=== PATIENT | male | born 1955 | race Caucasian/White ===

== ENCOUNTER → 2022-08-12 | Outpatient (CLI) | payer SELFPAY ==
--- NOTE | 2022-08-12 06:15 | ECHOD_ITS ---
Reason For Study: CARDIOMYOPATHY Procedure This was a 2D Doppler, Color Flow transthoracic echocardiogram. Exam performed in department. Left Ventricle Normal LV size. Severe eccentric left ventricular hypertrophy. Left ventricular systolic function is normal. The estimated ejection fraction is 60 %. Stage 3 diastolic dysfunction. No regional wall motion abnormalities noted. Right Ventricle Normal RV size. Normal systolic function. Atria The left atrium is moderately enlarged. The right atrium is mildly enlarged. Mitral Valve There is mild mitral annular calcification. Bileaflet diffuse mitral valve thickening. Mild (1+) eccentric mitral valve insufficiency. Tricuspid Valve Normal tricuspid valve. Mild (1+) tricuspid valve insufficiency. Pulmonary artery systolic pressure is 36 mmHg. Aortic Valve Trisinus/trileaflet aortic valve. Pulmonic Valve Normal pulmonic valve. Mild (1+) pulmonic valve insufficiency. Great Vessels Normal aortic root. The pulmonary artery is normal size. Normal inferior vena cava. Pericardium/Pleural No pericardial effusion. Medication Performed a rapid injection of agitated mix of 9 cc saline and 1cc air to assess for atrial septal defect. MMode/2D Measurements & Calculations LVIDd: 3.9 cm IVSd: 1.4 cm Ao root diam: 2.7 cm LVIDs: 2.1 cm LVPWd: 1.2 cm RVDd: 4.1 cm FS: 45.7 % LAV(MOD-bp): 102.4 ml LVAd ap4: 24.0 cm2 SV(MOD-sp4): 39.3 ml LAV(MOD-bp) Indexed: 56.8 ml/m2 LVLd ap4: 7.3 cm LAV(MOD-sp2): 97.8 ml EDV(MOD-sp4): 63.7 ml LAV(MOD-sp4): 100.8 ml EDV(sp4-el): 66.5 ml LVAs ap4: 12.4 cm2 LVLs ap4: 6.0 cm ESV(MOD-sp4): 24.5 ml ESV(sp4-el): 21.7 ml EF(MOD-sp4): 61.6 % EF(sp4-el): 67.3 % SV(sp4-el): 44.8 ml LA A4 area: 29.1 cm2 LA dimension(2D): 4.6 cm RA A4 area: 20.5 cm2 Time Measurements MV dec time: 0.21 sec Doppler Measurements & Calculations MV E max mendel: 83.3 cm/sec Lat Peak E' Mendel: 6.6 cm/sec Med Peak E' Mendel: 5.7 cm/sec MV A max mendel: 40.6 cm/sec E/E' lat: 12.7 E/E' med: 14.5 MV E/A: 2.1 Ao V2 max: 177.2 cm/sec LV V1 max: 162.6 cm/sec PA V2 max: 98.7 cm/sec Ao max P.6 mmHg LV V1 max P.6 mmHg TR max mendel: 286.3 cm/sec TR max P.8 mmHg ECHO/Echo Complete Interpretation Summary Normal LV size. Left ventricular systolic function is normal. Severe eccentric left ventricular hypertrophy. The estimated ejection fraction is 60 %. Stage 3 diastolic dysfunction. The left atrium is moderately enlarged. Pulmonary artery systolic pressure is 36 mmHg. Ordering Physician: Shiv La Referring Physician: KHOA WEEKS Performed By: Deepa Guthrie RDCS
--- NOTE | 2022-08-12 13:07 | STRESSREP ---
Stress Test Report Pharmacologic mild cardial perfusion stress test. 67-year-old man with a history of shortness of breath. Stress protocol: Resting EKG demonstrates sinus bradycardia with a rate of 56 bpm T wave inversions noted in lead I to aVL V4 V5 V6. 0.4 mg of regadenoson was infused per usual protocol followed by rapid intravenous saline flush injection continuous EKG monitoring was performed. The maximum heart rate attained was 77 bpm which was 49% of max impacted heart rate the maximum workload was 1 metabolic equivalent. At rest there were no ST or T wave changes noted to suggest abnormal flow reserve. The peak blood pressure was 118/70 mmHg. Myocardial perfusion protocol. 11.8 mCi of technetium 99m sestamibi was injected at rest. 0.4 mg of regadenoson was infused per usual protocol. At peak infusion 33.3 mCi of technetium 99m sestamibi was injected stress images were obtained stress and rest images were reconstructed in comparing the short axis vertical long and horizontal long axis. Gated images were also obtained. Perfusion SPECT analysis: Review of the stress images demonstrate normal uptake of tracer noted in all areas of the myocardium. The resting images similar demonstrate normal uptake of tracer noted in all areas of the myocardium. No areas of reversibility are noted suggest ischemia no previous infarct is noted. Gated SPECT analysis: The gated ejection fraction is 44%. Conclusion: Normal pharmacologic myocardial perfusion stress test with no evidence of ischemia. Mild reduction in left ventricular function
== END | disposition home or self-care (01) ==
LOC: CVS 06:19
PROVIDERS: PCP Family Medicine; Referring Provider Internal Medicine Cardiovascular Disease; Visit Provider Internal Medicine Cardiovascular Disease
DX: I42.9 Cardiomyopathy, unspecified (principal); R06.02 Shortness of breath
CPT/HCPCS: 78452; 93017; 93306; A9500; A4216; J2785

== ENCOUNTER 2023-08-17 08:36 | Day surgery (SDC) | payer MEDICARE, OTHER, SELFPAY ==
[2023-08-17] VITALS (7 sets, daily range): BP systolic 91–105; BP diastolic 60–68; PULSE 57–69; RESP 16–18; TEMP 36.1–36.6; O2SAT 94–98; BMI 26.6
[2023-08-17] MEDS: Lactated Ringers 1,000 ML 15 ML IV (09:22)
[2023-08-17] MEDS: Cefazolin 2 GM in 0.9% Normal Saline (100mL Bag) 100 ML IV (10:47)
[2023-08-17] MEDS: Epinephrine (1 mg/ml) 1 MG/ML VIAL (11:16)
[2023-08-17] MEDS: Bupivacaine 0.25% 30 ML Vial (13:39)
[2023-08-17] MEDS: Ketorolac 15 MG/ML Vial IM (15:39)
--- NOTE | 2023-08-17 15:57 | DCINST_ITS ---
Discharge Instructions Follow Up Care Test Results: Test results from this visit will be discussed in further detail at your follow- up appointment, if applicable. Discharge Plan Admission Primary Reason for Your Visit: Right shoulder rotator cuff repair Attending Provider: Juan M Wells Primary Care Provider: Jac Mcqueen Instructions Additional Instructions / Restrictions: See preprinted instructions from your surgeons office. Discharge Orders/Prescriptions Prescriptions: New oxycodone 5 mg tablet 10 mg PO Q6H PRN (Reason: pain) 7 Days Qty: 42 0RF ondansetron 4 mg tablet,disintegrating 4 mg PO Q8H PRN (Reason: nausea and vomiting) 4 Days Qty: 12 0RF Continued red yeast rice 600 mg capsule 600 mg PO DAILY Rx Instructions: give with meal/snack calcium carbonate [Calcium 600] 600 mg calcium (1,500 mg) tablet 600 mg PO DAILY atorvastatin 40 mg tablet 40 mg PO QHS metoprolol succinate 50 mg tablet extended release 24 hr 50 mg PO QHS aspirin 81 mg tablet,delayed release (DR/EC) 81 mg PO DAILY Referrals / Follow Up: Jac Mcqueen DO [Primary Care Provider] - Disposition Disposition (needs filled in before D/C Order can be placed): Home, Self Care
--- NOTE | 2023-08-17 15:57 | OP.PCM_ITS ---
Report of Operation Date of Procedure: 08/17/23 Description of Surgical Findings:: Preoperative diagnosis: 1. Right shoulder acute massive rotator cuff tear 2. Right shoulder subacromial impingement syndrome 3. SLAP tear right shoulder with biceps tendinitis 4. 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 Right shoulder acute massive rotator cuff tear 2. Right shoulder subacromial impingement syndrome 3. SLAP tear right shoulder with biceps tendinitis 4. 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 Diagnostic and operative right shoulder arthroscopy with rotator cuff repair 2. Right shoulder subacromial decompression 3. Right shoulder arthroscopic labral debridement, capsular debridement, subacromial bursectomy 4. Right shoulder mini open long head biceps tenodesis Primary Surgeon: Juan M Wells DO [employer] Supervisor: Portia Chandra PA-C Anesthesia: General endotracheal Anesthesiologist: Cam Cummins MD Complications: None apparent Specimen: None Estimated blood loss: 10 cc IV fluids: 1500 cc crystalloid Urine output: None Packing/drains: None Implants: Arthrex 4.75 mm swivel lock anchor x4, Arthrex fiber tack RC all suture anchors x3, Arthrex biceps button x1 Intraoperative findings: Type II SLAP tear, massive rotator cuff tear with tearing of the subscapularis, supraspinatus and infraspinatus, downsloping subacromial spur, AC joint osteoarthrosis Preoperative indications: This is a 68-year-old male seen in the outpatient setting with right shoulder pain and weakness with pseudoparalysis following a fall from a ladder approximately 6 weeks ago. MRI was obtained and demonstrated massive acute rotator cuff tear. Labral tearing, subacromial impingement, AC joint arthrosis was noted as well. I recommended surgical intervention in the form of right shoulder diagnostic and operative arthroscopy with rotator cuff repair, biceps tenodesis, distal clavicle excision and subacromial decompression. I reviewed the risks, benefits, alternatives the procedure with the patient. Risks included but were not limited to bleeding, infection, loss of life or limb, incomplete repair, irreparable rotator cuff tear, nonhealing tendon, persistent pain, persistent weakness, stiffness, need for prolonged immobilization, prolonged therapy, DVT or PE, risk of anesthesia, neurovascular injury, need for additional surgery. Patient expressed understanding these risks and wished to proceed with surgery. Description of procedure: Patient was identified in the preoperative holding area by name, medical record number, and date of . Informed consent was confirmed with the patient. The operative extremity was marked with a surgical marker. All questions were answered to the patient's satisfaction. An interscalene block was administered by anesthesia staff prior to the pr ocedure. At time of his procedure, patient was was brought to the operative suite and positioned supine on a standard operating table. General anesthesia was induced and endotracheal tube placed. Patient was then positioned in the lateral decubitus position with all bony prominences well-padded and an axillary roll was placed. He was held in position with a beanbag. We spun the bed approximat jasiel 20 degrees. We then prepped and draped the operative upper extremity in a normal, sterile orthopedic fashion. We performed a timeout with all parties in attendance in agreement with the side, site, and operation be performed. No concerns were voiced and we elected to proceed. 2 g Ancef was administered prior to the incision by anesthesia staff. Operative upper extremity was placed in traction utilizing a traction sleeve. 15 pounds was applied to the right upper extremity throughout the majority of the case. I first outlined the bony landmarks of the shoulder. I established a standard posterior portal with an 11 blade scalpel. Blunt tipped trocar in cannula was inserted into the glenohumeral joint. The joint was insufflated with normal saline solution with epinephrine in the first 2 bags. Trocar was removed and diagnostic arthroscopy was commenced. I established a standard interval portal anteriorly with localization via spinal needle. Skin was sharply incised with 11 blade scalpel. Diagnostic arthroscopy revealed an unstable biceps anchor consistent with type II SLAP tear, minimal chondromalacia on the humeral head. Massive rotator cuff tear was noted. There was retraction of the the supraspinatus, subscapularis, and infraspinatus. I proceeded with biceps tenotomy with a radiofrequency ablation device. Tenotomy was performed at the tendon labral junction and the tendon was allowed to retract into the bicipital groove. I then turned my attention to the subscapularis. An anterior superior lateral portal was then established for suture management. A rigid cannula was placed. I debrided the lesser tuberosity footprint. A 3 sided release was performed of the subscapularis. An inverted mattress suture was placed in the subscapularis with a fiber tape suture via an antegrade suture passer. Sutures were passed through the eyelet of a bio composite swivel lock anchor. Burrer Machine hole was then placed in the lesser tuberosity at the footprint of the s ubscapularis. Sutures were tensioned and swivel lock anchor was placed with excellent cortical purchase and excellent reapproximation of the subscapularis tendon. Comma tissue was identified and left intact. I then withdrew the arthroscope. Utilizing the blunt tipped trocar, I reentered the shoulder in the subacromial space. I established a standard lateral portal under direct visualization with a spinal needle. An 11 blade scalpel was used to sharply incise the skin. Subacromial bursitis was debrided with a radial resector. The undersurface of the acromion was skeletonized with the radiofrequency ablator as well as peeling off the undersurface and attachment of the coracoacromial ligament. There was a downsloping likely type II spur off the distal portion of the acromion. This was resected utilizing the 5.5 mm bur to a flat acromion. I then turned our attention back to the rotator cuff tear. There was good mobility of the rotator cuff tissue. A traction suture was placed in the leading edge of the supraspinatus to assist with reapproximation of the tendon. The footprint was lightly decorticated with the arthroscopic bur. I then proceeded with double row fixation. 3 fiber tack anchors were placed at the chondral margin approximately 1 cm apart. Fiber tape sutures were passed at the musculotendinous junction of the supraspinatus and infraspinatus. A single limb of each suture was then placed through swivel lock anchors for lateral row. 3 separate swivel lock anchors were placed as a lateral row approximately 1 cm lateral to our medial row. Sutures were sequentially tensioned and swivel lock anchors were placed posterior to anterior. There was excellent reapproximation of the tendon to its [place] footprint and compression at the medial row. Dog ears were identified and were reduced with the accessory suture and the lateral row anchors via the knotless mechanism. These were tensioned and cut flush with the anchor. The shoulder was brought through a passive range of motion and there was excellent reapproximation of tissue and stability of the rotator cuff. I then turned my attention to the AC joint. Inferior and anterior capsule was released with the cautery device. A distal clavicle excision was performed with a 5.5 mm bur removing approximately 8 mm distal clavicle. The subacromial space was then thoroughly lavaged. Arthroscopic instruments were removed. Portal sites were closed in interrupted [id number] fashion with 4-0 nylon suture. I then turned my attention to the mini open biceps tenodesis. The arm was taken out of traction. An oblique incision was made along the inferior border of the pectoralis major. Skin was sharply incised with a 15 blade scalpel. Blunt dissection was carried down the level of the fascia. Fascia was opened just inferior to the pectoralis major tendon. Hohmann retractor was placed beneath the pectoralis major tendon retracting it laterally and a Hohmann retractor was placed medially retracting the short head of the biceps tendon. Long head biceps tendon was identified and retrieved out of the wound. A whipstitch was placed approximately 1 cm from the musculotendinous junction. Intercalary tendon was amputated. I then drilled unit cortically for an onlay biceps tenodesis with a biceps button. Sutures were passed through the button. Button was then placed in the intramedullary canal and deployed. Suture was then tensioned with excellent reapproximation of the tendon to the tenodesis site. Wound was copiously irrigated with normal saline solution. Dermis was reapproximated with 3 oh buried Vicryl suture. Skin was reapproximated with a 4-0 subcuticular Monocryl suture and Dermabond. Sterile compression dressing was applied. Patient was then placed in UltraSling. He was able to be safely extubated in the operative suite. He was transferred to his gurney and subsequently to PACU in stable condition. Need for skilled trust administrative assistant: Portia Chandra PA-C was critical to the outcome of the case. During the course of the procedure the physician trust administrative assistant played a vital role. Her intimate knowledge of my steps in the procedure aided in safe and expedient completion of the procedure. The PA played a vital role in positioning particularly in obtaining the appropriate positioning. The PA was also vital in the retraction of soft tissues during the exposure and protecting vital structures. The PA was also vital and obtaining tendon reduction and assisting with hardware placement. She also played a vital role in closure and sling application with my direct supervision. Postoperative plan: Patient will be nonweightbearing to the operative extremity. He should maintain his sling at all times unless to shower. He may shower on postoperative day #2 if no significant drainage. He will follow up in approximately 2 weeks for suture removal. Plan to initiate physical therapy at 2 weeks. Aspirin 81 mg twice daily for DVT prophylaxis x2 weeks. Prescription for oxycodone was sent to his pharmacy for postoperative analgesia.
== END 2023-08-17 16:38 | disposition home or self-care (01) ==
LOC: SDC 08:40 → AC 08:41
PROVIDERS: PCP Family Medicine; Referring Provider Student in an Organized Health Care Education/Training Program; Visit Provider Student in an Organized Health Care Education/Training Program
PROC: (CPT 29827; principal; 2023-08-17 10:30)
DX: M19.011 Primary osteoarthritis, right shoulder (principal); I42.9 Cardiomyopathy, unspecified; S46.111A Strain of muscle, fascia and tendon of long head of biceps, right arm, initial encounter; M75.41 Impingement syndrome of right shoulder; M75.20 Bicipital tendinitis, unspecified shoulder; S43.431A Superior glenoid labrum lesion of right shoulder, initial encounter; R07.89 Other chest pain; R06.02 Shortness of breath; E78.5 Hyperlipidemia, unspecified; R01.1 Cardiac murmur, unspecified; Z87.11 Personal history of peptic ulcer disease; Z86.72 Personal history of thrombophlebitis; W11.XXXA Fall on and from ladder, initial encounter; Z86.16 Personal history of COVID-19; S46.011A Strain of muscle(s) and tendon(s) of the rotator cuff of right shoulder, initial encounter; M25.511 Pain in right shoulder; R53.1 Weakness; E66.3 Overweight; Z68.26 Body mass index [BMI] 26.0-26.9, adult
CPT/HCPCS: 29827; 29806; 29824; 23430; 29826; 01630; C1713; J7120; J2405

== ENCOUNTER → 2024-11-26 | Outpatient (CLI) | payer MEDICARE, OTHER, SELFPAY ==
--- NOTE | 2024-11-26 07:43 | ECHOD_ITS ---
Reason For Study Reason For Study: Arrhythmia Procedure This was a 2D Doppler, Color Flow transthoracic echocardiogram. Exam performed in department. Left Ventricle Severe LV concentric hypertrophy. Almost complete cavitary obliteration during systole. Estimated LVEF > 75%. Stage II diastolic dysfunction. LVOT peak gradient 15 mmHg. Right Ventricle Normal right ventricle. Atria The left atrium is severely enlarged. The right atrium is moderately enlarged. Mitral Valve Mild (1+) mitral valve insufficiency. Tricuspid Valve Moderate (2+) tricuspid valve insufficiency. Normal pulmonary artery pressure. Aortic Valve Trisinus/trileaflet aortic valve. Pulmonic Valve The pulmonic valve is not well visualized. Great Vessels Normal sized aortic root. Pericardium/Pleural No pericardial effusion. MMode/2D Measurements & Calculations LVIDd: 3.8 cm IVSd: 2.0 cm LVOT diam: 1.8 cm LVIDs: 1.6 cm LVPWd: 1.6 cm LVOT area: 2.7 cm2 RVDd: 4.2 cm FS: 57.9 % Ao root diam: 2.8 cm LAV(MOD-bp): 110.2 ml LVAd ap4: 15.7 cm2 LAV(MOD-bp) Indexed: 63.7 ml/m2 LVLd ap4: 6.5 cm LAV(MOD-sp2): 97.1 ml EDV(MOD-sp4): 33.5 ml LAV(MOD-sp4): 106.1 ml EDV(sp4-el): 31.9 ml LVAs ap4: 5.4 cm2 LVLs ap4: 3.8 cm ESV(MOD-sp4): 7.5 ml ESV(sp4-el): 6.6 ml EF(MOD-sp4): 77.5 % EF(sp4-el): 79.3 % SV(MOD-sp4): 26.0 ml SV(sp4-el): 25.3 ml LA A4 area: 30.2 cm2 SI(MOD-sp4): 15.0 ml/m2 LA dimension(2D): 5.9 cm RA A4 area: 19.6 cm2 TAPSE: 1.7 cm Time Measurements MV dec time: 0.21 sec Doppler Measurements & Calculations MV E max mendel: 81.2 cm/sec Lat Peak E' Mendel: 6.5 cm/sec Med Peak E' Mendel: 4.9 cm/sec MV A max mendel: 55.8 cm/sec E/E' lat: 12.5 E/E' med: 16.6 MV E/A: 1.5 MV V2 max: 134.6 cm/sec MV P1/2t max mendel: 135.9 cm/sec Ao V2 max: 262.5 cm/sec MV max P.3 mmHg MV P1/2t: 92.9 msec Ao max P.7 mmHg MV V2 mean: 60.7 cm/sec Ao V2 mean: 149.9 cm/sec MV mean P.9 mmHg MV dec slope: 428.4 cm/sec2 Ao mean P.2 mmHg MV V2 VTI: 31.6 cm MVA(P1/2t): 2.4 cm2 Ao V2 VTI: 43.8 cm DEEPTHI(V,D): 2.0 cm2 AI max mendel: 290.1 cm/sec LV V1 max: 192.2 cm/sec MR max mendel: 477.5 cm/sec AI max P.7 mmHg LV V1 max P.8 mmHg MR max P.2 mmHg AI dec slope: 89.1 cm/sec2 AI P1/2t: 953.3 msec PA V2 max: 104.3 cm/sec TR max mendel: 280.1 cm/sec PA V2 mean: 75.6 cm/sec TR max P.6 mmHg ECHO/Echo Complete Interpretation Summary Severe LV concentric hypertrophy. Almost complete cavitary obliteration during systole. Estimated LVEF > 75%. Stage II diastolic dysfunction. LVOT peak gradient 15 mmHg. The left atrium is severely enlarged. The right atrium is moderately enlarged. Mild (1+) mitral valve insufficiency. Moderate (2+) tricuspid valve insufficiency. Ordering Physician: Shiv La Referring Physician: Sadie Jenkins [employer]C Performed By: Monroe Huerta RCS
--- NOTE | 2024-11-26 07:44 | CT_ITS ---
PROCEDURE: LIMITED CHEST CT CARDIAC ONLY REASON FOR EXAM: Cardiac arrhythmia. TECHNIQUE: Chest CT with intravenous contrast. CONTRAST: 100 mL of Isovue-300. Multiple axial tomographic images were obtained with and without intravenous contrast administration. COMPARISON: None. FINDINGS: Hardware: None. Lymph nodes: Small mediastinal lymph nodes. Heart and Vasculature: Normal heart size. No pericardial effusion. Atherosclerotic calcifications of the thoracic aorta. Pulmonary arteries are unremarkable. Mild coronary artery calcification. Lungs and Airways: The lungs are normally expanded and clear. Pleura: No pleural effusion. No pneumothorax. Upper Abdomen: Visualized portions of the upper abdominal viscera are unremarkable. Bones: Degenerative changes of the thoracic spine. CT/Limited Chest CT Cardiac Only IMPRESSION: Minimal coronary artery calcification. One or more dose reduction techniques were used (e.g., Automated exposure contr ol, adjustment of the mA and/or kV according to patient size, use of iterative reconstruction technique). Reading Location: [place] [id number]
[2024-11-26 08:10] VITALS: BP 109/62; PULSE 69; RESP 16; TEMP 35.7; O2SAT 100; BMI 27.4
[2024-11-26 08:26] VITALS: BP 112/60; PULSE 69
[2024-11-26] MEDS: Nitroglycerin SL (ED/IMG/CATH) 0.4 MG TABLET SL (08:26)
[2024-11-26 08:32] LABS: ALB/GLOB Ratio 1.1 RATIO (0.9-2.4); AST(SGOT) 32 U/L (15-37); Alanine Aminotransfer ALT/SGPT 51 U/L (16-61); Albumin, Serum 3.5 g/dL (3.2-5.0); Alkaline Phosphatase 81 U/L (45-117); Anion Gap 4 (5-15); BUN 20 mg/dL (7-18); BUN/Creat Ratio 19.4 RATIO (10-20); Chloride 105 mmol/L (98-107); Cholesterol 124 mg/dL (200); Creatinine, Serum 1.03 mg/dL (0.70-1.30); EST Glomerular Filtration Rate 77 mL/min (>60); Est Glom Filt Rate - Afr Amer 93 mL/min (>60); Estimated Creatinine Clearance 61.29 ml/min; Globulin 3.2 g/dL (2.2-4.2); Glucose 90 mg/dL (74-106); High Density Lipoprotein 46 mg/dL; Potassium 4.3 mmol/L (3.5-5.1); Protein, Total 6.7 g/dL (6.4-8.2); Sodium Level 139 mmol/L (136-145); Triglycerides 65 mg/dL; Very Low Density Lipoprotein 13 mg/dL (5-40)
[2024-11-26 08:33] VITALS: BP 94/64; PULSE 75; RESP 16; O2SAT 97
--- NOTE | 2024-12-23 11:23 | CCTA.WCONT ---
CCTA w/Cont Coronary Arteries Date of Study:: 11/26/24 Chest pain Coronary Calcium Scoring: High-resolution Computed Tomographic imaging of the chest was performed on [11/26/2024], with particular attention paid to the coronary arteries. Intravenous contrast agent was administered per protocol and images reconstructed and displayed. LEFT MAIN CORONARY ARTERY: Arises from the left coronary cusp with no calcification noted or significant stenosis. Advise going to left anterior descending artery and left circumflex artery. [] LEFT ANTERIOR DESCENDING CORONARY ARTERY: This arose from the left main coronary artery with no significant calcification noted and no coronary obstruction present. The vessel continues to the apex of the ventricle. [] LEFT CIRCUMFLEX CORONARY ARTERY: This was a nondominant but large vessel giving off a first second and third obtuse marginal branch and an AV groove branch. No calcification or atherosclerotic plaquing was noted. [] RIGHT CORONARY ARTERY: Dominant large right coronary artery with no significant atherosclerotic plaquing present. [] THORACIC AORTA: [] PULMONARY ARTERY: [] LEFT ATRIUM/APPENDAGE: [] MITRAL VALVE: [] AORTIC VALVE: [] LEFT VENTRICLE: [] CORONARY CALCIUM SCORE: Total Agatston score of 0. CT angiogram demonstrating nonobstructive coronary artery disease. Coronary calcium score of 0 present. []
== END | disposition home or self-care (01) ==
PROVIDERS: PCP Nurse Practitioner Family; Referring Provider Internal Medicine Cardiovascular Disease; Visit Provider Internal Medicine Cardiovascular Disease
DX: I51.89 Other ill-defined heart diseases (principal); I42.2 Other hypertrophic cardiomyopathy; R01.1 Cardiac murmur, unspecified; R06.02 Shortness of breath; I49.9 Cardiac arrhythmia, unspecified; R00.2 Palpitations; E78.5 Hyperlipidemia, unspecified; R07.89 Other chest pain
CPT/HCPCS: 36415; 75571; 75574; 76380; 80053; 80061; 93306; Q9967

== ENCOUNTER 2025-01-23 15:04 | Observation (INO) | payer MEDICARE, OTHER, SELFPAY ==
--- NOTE | 2025-01-16 15:15 | RAD_ITS ---
PROCEDURE: CHEST PA AND LATERAL 01/16/2025 REASON FOR EXAM: FOR ICD IMPLANT TECHNIQUE: Frontal and lateral views of the chest. COMPARISON: CT cardiac 11/26/2024. FINDINGS: Hardware: None. Heart: Heart size is mildly enlarged. Mediastinum: There are atherosclerotic calcifications of the thoracic aorta. Lungs: No focal consolidation, pleural effusion or pneumothorax. Bones: Degenerative changes are identified within the thoracic spine. RAD/Chest PA and Lateral IMPRESSION: Mild cardiomegaly. Reading Location: [id number]
[2025-01-16 15:40] LABS: Bacteria 0 SEEN /hpf (None Seen); Red Blood Cells-Urine 0 SEEN /hpf (0-5); Squamous Epithelial Cells - UA 0 SEEN /hpf (0-5); White Blood Cells 0 SEEN /hpf (0-5)
[2025-01-16 16:05] LABS: Hematocrit 42.5 % (40-54); Hemoglobin 14.1 g/dL (13.0-16.5); Mean Corp Hgb Conc 33.2 g/dL (32-36); Mean Corpuscular Hgb 29.9 pg (27.0-32.0); Mean Platelet Vol. 11.5 fl (6.2-12.0); Platelet Count 195 K/mm3 (150-450); RBC Distribution Width CV 12.8 % (11.6-14.6); RBC Distribution Width SD 42.4 fl (35.1-43.9); Red Blood Count 4.72 M/mm3 (4.6-6.2); White Blood Count 5.9 K/mm3 (4.4-11.0)
[2025-01-16 16:55] LABS: Anion Gap 9 (5-15); BUN 27 mg/dL (4-19); BUN/Creat Ratio 22.4 RATIO (10-20); Calcium,Total 9.1 mg/dL (7.6-11.0); Carbon Dioxide 25.2 mmol/L (21.0-32.0); Chloride 103 mmol/L (98-108); Creatinine, Serum 1.22 mg/dL (0.70-1.20); EST Glomerular Filtration Rate 65 (>60); Glucose 102 mg/dL (70-99); Potassium 4.6 mmol/L (3.3-5.1); Sodium Level 138 mmol/L (133-145)
[2025-01-16 16:56] LABS: Color, Urine Yellow (Yellow); Glucose, Dipstick Normal (Normal); Ketone-Dipstick Negative (Negative); Leukocyte Esterase-Dipstick Negative /ul (Negative); Nitrite-Dipstick Negative (Negative); Occult Blood-Urine Negative /ul (Negative); Protein-Dipstick 15 mg/dl (Negative); Specific Gravity, Urine 1.025 (1.002-1.030); Urine Bilirubin Dipstick Negative (Negative); Urine Clarity Clear (Clear); Urine Urobilinogen Normal (Normal)
[2025-01-16 18:28] LABS: Mucous, Urine 1+ /hpf (<or=2+)
[2025-01-22 08:30] VITALS: BMI 27.6
[2025-01-23] VITALS (13 sets, daily range): BP systolic 77–103; BP diastolic 48–71; PULSE 60–75; RESP 15–18; TEMP 37; O2SAT 95–98
--- NOTE | 2025-01-23 10:57 | RAD_ITS ---
PROCEDURE: CHEST 1 VIEW (PORTABLE) 01/23/2025 REASON FOR EXAM: POST OP ICD, ASSESS FOR PNEUMOTHROAX TECHNIQUE: Frontal view of the chest. COMPARISON: 01/16/2025 FINDINGS: Hardware: Dual lead ICD. Heart: Heart size is mildly enlarged. Lungs: The lungs are clear. No large pleural effusion. RAD/Chest 1 View (Portable) IMPRESSION: Left chest ICD with lead projecting over the right atrium and lead projecting o f the right ventricle. No finding of pneumothorax. Reading Location: [facility]
--- NOTE | 2025-01-23 11:04 | EX.DEFIBPR_ITS ---
Defibrillator Procedure Note Procedures Details: Procedure: Successful dual chamber ICD implantation. Indication: Primary Prevention Hypertrophic Obstructive Cardiomyopathy NYHA Class I Syncope Family History of Sudden LVEF 70% Findings: The patient was brought to the EP LAB in the fasting well-hydrated state and prepped and draped in the usual sterile fashion. Local anesthesia with 2% lidocaine was used to achieve a numbing effect in the LEFT pectoral region. In addition, iv anesthesia was administered by anesthesia personnel present throughout the case. An incision was made 2 fingerbreadths below the left clavicle and a pocket was made by blunt dissection. Bleeding vessels were coagulated using electrocautery. Using modified Seldinger technique, two guidewires was placed into the left axillary vein down to the low RA. Through a venous sheath the RV lead was passed into the RV apex. The active screw mechanism was extended. Adequate pacing and sensing thresholds were measured. Diaphragmatic stimulation was excluded with high output pacing. The introducer sheath was peeled away. Next using the second guidewire a introducer sheath was placed into the central circulation. Through the venous sheath an active-fixation right atrial lead was passed in the right atrium the active screw mechanism was deployed and the lead was attached to the myocardium. Adequate pacing and sensing thresholds were measured. Diaphragmatic stimulation was excluded with high output pacing. The introducer sheath was peeled away. The leads were secured in the pocket using 0-Silk with initial suture tie made to the pectoralis muscle and fascia, followed by wrapping around and tying securely to the lead sleeves. In addition, a purse string suture was tied around the leads entry site with 2-0 Vicryl for hemostasis. The leads were connected to the dual chamber ICD pulse generator. The pocket was irrigated with antibiotic solution. The pulse generator was placed into the pocket with redundant lead allowed to form a cami coil behind the pulse generator. The device header was secured in place with a leash using a nonabsorbable suture. The pocket was closed in 2 layers with 2-0 and 3-0 Vicryl for the subcutaneous and subcuticular layers respectively. Hemostasis was achieved with manual pressure. Upon closure no bleeding was noted. A sterile dressing was applied. The patient was recovered and sent to their room in stable condition. Complications: none. Specimens: none. Estimated blood loss: 10mL. Devices and Leads Status Type Cnc Operator Programmer Model # Serial # Implant Date Explant Date Reason New Generator Telnic [id number] 01/23/2025 New RV - Right Ventricle Brown [id number] 01/23/2025 New RA - Right Atrium Brown [id number] 01/23/2025 PSA Measurements Position P-wave (mV) R-wave (mV) Impedance ('?) Threshold (V) Pulse Width (ms) mA RV - Right Ventricle 7.8 617 1.0 0.5 RA - Right Atrium 2.7 623 1.4 0.5 Device Measurements Position P-wave (mV) R-wave (mV) Impedance ('?) Threshold (V) H.V Impedance Pulse Width (ms) RV - Right Ventricle 8.4 630 0.5 65 0.5 RA - Right Atrium 4.7 590 0.5 0.5
[2025-01-23] MEDS: 0.9% Normal Saline (1000mL) 1,000 ML 100 ML IV ×2 (12:37→21:45)
[2025-01-23] MEDS: Acetaminophen 325 MG Tablet PO (18:05)
[2025-01-23] MEDS: Atorvastatin Calcium 40 MG Tablet PO (21:42)
[2025-01-23] MEDS: Metoprolol(XL)Succ 100 MG Tablet PO (22:08)
[2025-01-24 03:00] VITALS: PULSE 67
[2025-01-24 03:52] VITALS: BP 98/66; PULSE 60; RESP 14; TEMP 36.5; O2SAT 95
[2025-01-24] MEDS: Acetaminophen 325 MG Tablet PO ×2 (03:56→09:52)
[2025-01-24 04:47] LABS: Hematocrit 39.4 % (40-54); Hemoglobin 13.2 g/dL (13.0-16.5); Mean Corp Hgb Conc 33.5 g/dL (32-36); Mean Corpuscular Hgb 29.6 pg (27.0-32.0); Mean Corpuscular Volume 88.3 fL (80-94); Mean Platelet Vol. 11.5 fl (6.2-12.0); Platelet Count 144 K/mm3 (150-450); RBC Distribution Width CV 13.2 % (11.6-14.6); RBC Distribution Width SD 42.6 fl (35.1-43.9); Red Blood Count 4.46 M/mm3 (4.6-6.2); White Blood Count 8.2 K/mm3 (4.4-11.0)
--- NOTE | 2025-01-24 05:55 | RAD_ITS ---
PROCEDURE: CHEST 3 VIEW 01/24/2025 REASON FOR EXAM: POST PERMANENT ICD/PACEMAKER TECHNIQUE: Frontal and lateral views of the chest. COMPARISON: 01/23/2025. FINDINGS: AICD is in good position. Increased central pulmonary venous congestion. There is no demonstrated pleural abnormality. Normal mediastinum and kolby. Normal visualized pulmonary arteries. Normal visualized aortic arch and descending thoracic aorta. Mild diffuse spondylosis of the visualized thoracic spine. Normal visualized ribs, clavicles, and shoulders. There is no demonstrated abnormality of the visualized soft tissue structures of the upper abdomen. RAD/Chest 3 View IMPRESSION: 1. Unchanged cardiomegaly. 2. Increased central pulmonary venous congestion. Reading Location: [facility]
--- NOTE | 2025-01-24 05:55 | EKG12_ITS ---
Test Reason : AM EKG Blood Pressure : */* mmHG Vent. Rate : 60 BPM Atrial Rate : 60 BPM P-R Int : 142 ms QRS Dur : 190 ms QT Int : 570 ms P-R-T Axes : 68 -63 118 degrees QTcB Int : 570 ms AV dual-paced rhythm Abnormal ECG No previous ECGs available Confirmed by Vidal Hopkins ([id number]), movie editor KAMILLE BURDEN ([id number]) on 01/27/2025 8:45:59 AM Referred By: David Holland Confirmed By: Vidal Hopkins
[2025-01-24 07:46] LABS: Anion Gap 9 (5-15); BUN 18 mg/dL (4-19); BUN/Creat Ratio 19.2 RATIO (10-20); Calcium,Total 8.3 mg/dL (7.6-11.0); Carbon Dioxide 20.4 mmol/L (21.0-32.0); Chloride 107 mmol/L (98-108); Creatinine, Serum 0.92 mg/dL (0.70-1.20); EST Glomerular Filtration Rate 92 (>60); Estimated Creatinine Clearance 68.82 ml/min (50-250); Glucose 107 mg/dL (70-99); Potassium 4.3 mmol/L (3.3-5.1); Sodium Level 136 mmol/L (133-145)
--- NOTE | 2025-01-24 08:05 | PCM.DC ---
Discharge Instructions Diet Discharge Diet: No restrictions DC O2, CPAP, BIPAP needs Home O2 Discharge instructions: No Dressing / Incision Discharge Activity: - (follow instuctions Liz gave you post op care) May shower in (days): 1 Lifting Restrictions: Follow instructions from Liz and Dr. Holland. Additional Activity Instructions:: If you are concerned with your incision call the office. Follow the instructions Liz gave you. Dressing / Incision Call your doctor if your incision/area has: Continuous Slow Oozing, Sudden Increased Bleeding, Increased Pain/ Swelling, Foul Smelling Discharge and Swelling at the incision site Call your doctor if you observe: Fever of 101 or Higher Follow Up Care Test Results: Test results from this visit will be discussed in further detail at your follow-up appointment, if applicable. Discharge Plan Admission Admit Date/Time: 01/23/25 15:04 Attending Provider: David Holland Primary Care Provider: Sadie Jenkins POST DOCTORAL RESEARCHER Instructions Additional Instructions / Restrictions: Follow the instructions Liz gave you during your teaching appt. Discharge Orders/Prescriptions Prescriptions: Continued red yeast rice 600 mg capsule 600 mg PO DAILY Rx Instructions: give with meal/snack calcium carbonate [Calcium 600] 600 mg calcium (1,500 mg) tablet 600 mg PO DAILY atorvastatin 40 mg tablet 40 mg PO QHS aspirin 81 mg tablet,delayed release (DR/EC) 81 mg PO DAILY cholecalciferol (vitamin D3) 50 mcg (2,000 unit) capsule 50 mcg PO QDAY omega-3 fatty acids [Fish Oil] PO DAILY metoprolol succinate 100 mg tablet extended release 24 hr 100 mg PO QHS Qty: 90 3RF Referrals / Follow Up: Sadie Jenkins POST DOCTORAL RESEARCHER, POST DOCTORAL RESEARCHER-C [Primary Care Provider] - Disposition Disposition (needs filled in before D/C Order can be placed): Home, Self Care
--- NOTE | 2025-01-24 09:26 | PHA.DC.MR.R ---
Pharmacy [place] Med Reconciliation Pharmacy Service has performed discharge medication reconciliation for this patient. The patient's discharge medication list was reviewed for discrepancies and discrepancies were resolved. Medications at Discharge Home Medications atorvastatin 40 mg tablet 40 mg PO QHS 07/22/22 calcium carbonate (Calcium 600) 600 mg PO DAILY 08/02/22 red yeast rice 600 mg capsule 600 mg PO DAILY 08/02/22 aspirin 81 mg tablet,delayed release 81 mg PO DAILY 10/12/22 cholecalciferol (vitamin D3) 50 mcg (2,000 unit) capsule 50 mcg PO QDAY 10/30/24 omega-3 fatty acids [Fish Oil] PO DAILY 10/30/24 metoprolol succinate 100 mg tablet,extended release 24 hr 100 mg PO QHS #90 tabs 11/28/24
[2025-01-24 09:42] VITALS: BP 94/60; PULSE 69; RESP 17; TEMP 36.8; O2SAT 95
[2025-01-24] MEDS: Calcium Carbonate 500 MG Tablet PO (09:49)
[2025-01-24] MEDS: Cholecalciferol (VIT D3) 25 MCG TABLET (1,000 UNITS) 50 MCG PO (09:49)
[2025-01-24] MEDS: Aspirin E.C. 81 MG Tablet PO (09:49)
--- NOTE | 2025-01-24 10:01 | CASEMGMT ---
Patient has order for discharge. RN CM in to discuss needs at discharge. Patient denies needs or help at discharge. Patient had no further questions or concerns.
== END 2025-01-24 08:05 | disposition home or self-care (01) ==
LOC: CLSP 15:12 → PCU 15:12
PROVIDERS: Nurse Practitioner Family; Admitting Provider Internal Medicine Clinical Cardiac Electrophysiology; PCP Nurse Practitioner Family; Referring Provider Internal Medicine Clinical Cardiac Electrophysiology; Visit Provider Internal Medicine Clinical Cardiac Electrophysiology
DX: Z45.02 Encounter for adjustment and management of automatic implantable cardiac defibrillator (principal); I47.29 Other ventricular tachycardia; I42.1 Obstructive hypertrophic cardiomyopathy; Z82.49 Family history of ischemic heart disease and other diseases of the circulatory system; Z79.82 Long term (current) use of aspirin; Z79.899 Other long term (current) drug therapy; E78.5 Hyperlipidemia, unspecified; R06.02 Shortness of breath
CPT/HCPCS: 33249; 36415; 71045; 71046; 71047; 80048; 81001; 85027; 93005; 93641; 96360; 96361; 99152; 99153; C1894